=== PATIENT | male | born 1990 | race African-American/Black ===

== ENCOUNTER 2017-12-22 09:46 | Inpatient (IN) | payer OTHER ==
[~2017-12-22] VITALS: Ht 172.7 cm; Wt 107.0 kg
[2017-12-22] MEDS ORDERED: KETOROLAC TROMETH 30 MG/ML 1ML VIAL IV ONE (10:15)
[2017-12-22] MEDS ORDERED: SODIUM CHLORIDE 0.9% 1,000 ML IVB ONE (10:15)
[2017-12-22] MEDS ORDERED: ONDANSETRON HCL 4 MG/2 ML VIAL IV ONE (10:15)
[2017-12-22 10:20] LABS: Eosinophils # (auto) 0.2 uL; Hemoglobin 12.6 g/dL (13.5-17.5)
[2017-12-22 10:21] LABS: Basophils # (auto) 0.1 uL; Basophils % (auto) 0.7 % (0.0-2.0); Hematocrit 38.1 % (41.0-53.0); Lymphocytes # (auto) 3.3 uL; Lymphocytes % (auto) 40.7 % (10.0-50.0); Mean Corpuscular Hgb Conc. 33.1 g/dL (32.0-36.0); Mean Corpuscular Volume 72.5 fL (80.0-100.0); Monocytes # (auto) 0.9 uL; Monocytes % (auto) 11.3 % (0.0-12.0); Neutrophils # (auto) 3.6 uL; Neutrophils % (auto) 44.3 % (37.0-80.0); Nucleated Red Blood Cells % 0.1 %; Platelet Count (auto) 310 10^3/uL (140-450); Red Blood Cells 5.25 10^6/uL (4.5-5.90); White Blood Cell 8.2 10^3/uL (4.4-10.8)
[2017-12-22 10:32] LABS: Albumin 3.6 g/dL (3.4-5.0); BUN/Creatinine Ratio 11.9; Calcium 8.8 mg/dL (8.5-10.1); Potassium 4.1 mmol/L (3.5-5.1)
[2017-12-22 10:35] LABS: Bilirubin, Total 0.3 mg/dL (0.2-1.0)
[2017-12-22] MEDS ORDERED: MEPERIDINE HCL (25 MG/ML) 1ML VIAL IV ONE (11:00)
[2017-12-22] MEDS ORDERED: cefTRIAXone 1GM/10ml IVPUSH 10 ML IV ONE (12:30)
[2017-12-22] MEDS ORDERED: TEMAZEPAM 15 MG CAP PO PRN (12:30)
[2017-12-22] MEDS ORDERED: MORPHINE SULFATE 4 MG/ML SYR/VIAL IV PRN ×2 (12:30)
[2017-12-22] MEDS ORDERED: LORazepam 0.5 MG TAB PO PRN (12:30)
[2017-12-22] MEDS ORDERED: PROMETHAZINE HCL 25 MG/ML 1ML IV PRN (12:30)
[2017-12-22] MEDS: SODIUM CHLORIDE 0.9% 1,000 ML IV SCH (12:40)
[2017-12-22 13:19] LABS: Urine Bacteria FEW /hpf (None Seen); Urine Blood 3+ /uL (Negative); Urine Specific Gravity 1.013 (1.001-1.035); Urine WBC 15 /hpf (0 - 3)
[2017-12-22 16:56] VITALS: BP 138/74
[2017-12-22 22:00] VITALS: BP 131/70
[2017-12-22] MEDS: FAMOTIDINE 20 MG TAB PO SCH (22:04)
[2017-12-23] MEDS: SODIUM CHLORIDE 0.9% 1,000 ML IV SCH ×2 (00:04→08:39)
[2017-12-23 05:30] VITALS: BP 135/67
[2017-12-23 08:54] VITALS: BP 144/78
[2017-12-23] MEDS ORDERED: cefTRIAXone 1GM/10ml IVPUSH 10 ML IV SCH (09:00)
[2017-12-23] MEDS: FAMOTIDINE 20 MG TAB PO SCH (09:38)
[2017-12-25 11:45] LABS: Hepatitis B Surface Antibody Negative
[2017-12-25 11:55] LABS: Hepatitis B Surface Antigen Negative (Negative)
[2017-12-25 12:23] LABS: Hepatitis C Antibody Negative (Negative)
[2017-12-25 12:24] LABS: Hepatitis A Total Antibody Negative; Hepatitis B Core Total AB Negative
== END 2017-12-23 10:30 | disposition home or self-care (01) | DRG 465 ==
LOC: ER 09:46 → TELE 09:47 → WEST WING 14:22
PROVIDERS: ADMIT Internal Medicine; ATTEND Internal Medicine
DX: N13.2 Hydronephrosis with renal and ureteral calculous obstruction (principal); E66.9 Obesity, unspecified; R79.89 Other specified abnormal findings of blood chemistry; Z68.35 Body mass index [BMI] 35.0-35.9, adult
CPT/HCPCS: 36415; 74176; 76705; 80053; 81001; 85025; 86704; 86706; 86708; 86803; 87086; 87340; 94761; 96361; 96374; 96375; J1885; J2405

== ENCOUNTER 2017-12-24 01:10 | Emergency (ER) | payer OTHER ==
[~2017-12-24] VITALS: Ht 172.7 cm; Wt 104.3 kg
[2017-12-24 01:20] VITALS: BP 131/87
== END 2017-12-24 03:11 | disposition left against medical advice (07) ==
LOC: ER 01:11
DX: R10.9 Unspecified abdominal pain (principal); M54.9 Dorsalgia, unspecified; Z53.21 Procedure and treatment not carried out due to patient leaving prior to being seen by health care provider